=== PATIENT | male | born 1940 | race Caucasian/White ===

== ENCOUNTER → 2017-08-02 | Outpatient (CLI) | payer MEDICARE | END | disposition home or self-care (01) | LOC: RAH 16:36 | PROVIDERS: ATTEND Physical Medicine & Rehabilitation | DX: M19.012 Primary osteoarthritis, left shoulder (principal) | CPT/HCPCS: 73030 ==

== ENCOUNTER 2018-06-28 14:15 | Inpatient (IN) | payer MEDICARE ==
[~2018-06-28] VITALS: Ht 165.1 cm; Wt 77.7 kg
[2018-06-28 16:11] VITALS: BP 135/69
[2018-06-28 16:12] LABS: APPEARANCE,URINE Clear (CLEAR); BILIRUBIN,URINE Negative (NEGATIVE); COLOR,URINE Yellow (YELLOW); GLUCOSE, URINE (UA) Negative (NEGATIVE); KETONES,URINE Negative (NEGATIVE); LEUKOCYTE ESTERASE ,URINE Negative (NEGATIVE); NITRATE,URINE Negative (NEGATIVE); OCCULT BLOOD,URINE Negative (NEGATIVE); PROTEIN,URINE Negative (NEGATIVE)
[2018-06-28 16:12] LABS: BASOPHILS % (AUTO) 0.4 % (0.0-5.0); EOSINOPHILS % (AUTO) 1.8 % (0.0-8.0); HEMATOCRIT 34.9 % (42-54); LYMPHOCYTES % (AUTO) 51.3 % (21.0-51.0); MEAN CORPUSCULAR HEMOGLOBIN 31.5 pg (27.0-33.0); MEAN CORPUSCULAR HGB CONC 34.7 g/dL (32.0-36.0); MEAN CORPUSCULAR VOLUME 90.7 fL (79-99); MONOCYTES % (AUTO) 16.3 % (3.0-13.0); NEUTROPHILS % (AUTO) 30.2 % (40.0-77.0); NUCLEATED RED BLOOD CELLS 0.1 % (0.0-0.19); PLATELET COUNT (AUTO) 217 K/uL (130-400); RED BLOOD CELL COUNT(AUTO) 3.85 MIL/uL (4.50-6.20); WHITE BLOOD COUNT (AUTO) 4.9 K/uL (4.8-10.8)
[2018-06-28] MEDS ORDERED: ATOR80TA PO (16:29)
[2018-06-28] MEDS ORDERED: MATURE MVI PO (16:42)
[2018-06-28] MEDS ORDERED: FOLIC ACID PO (16:42)
[2018-06-28] MEDS ORDERED: PYRI100T2 PO (16:42)
[2018-06-28] MEDS ORDERED: ASPI-555 PO (16:42)
[2018-06-28] MEDS ORDERED: CYAN50008 PO (16:42)
[2018-06-28] MEDS ORDERED: CALC-866 PO (16:42)
[2018-06-28] MEDS ORDERED: OMEG-148 PO (16:42)
[2018-06-28] MEDS ORDERED: UBID100C10 PO (16:42)
[2018-06-28] MEDS ORDERED: SAW PALMETTO PO (16:42)
[2018-06-28 17:11] LABS: BAND NEUTROPHILS % (MANUAL) 2 % (0-2); LYMPHOCYTES % (MANUAL) 48 % (22-44); MAN.DIFF COMMENT-IMPRESSION MANUAL DIFFERENTIAL; MONOCYTES % (MANUAL) 15 % (2-9); REACTIVE LYMPHOCYTES 1 % (0-0); SEGMENTED NEUTROPHILS % 34 % (40-70)
[2018-06-29] VITALS (26 sets, daily range): BP systolic 113–151; BP diastolic 59–89
[2018-06-29] MEDS: CEFAZOLIN SODIUM 1 GM VIAL IVP SCH ×3 (06:00→18:07)
[2018-06-29] MEDS ORDERED: LIDOCAINE PF 2% 5ML ABBOJECT ONE ×2 (06:57→09:53)
[2018-06-29] MEDS ORDERED: ROCURONIUM 10MG/1ML SYR 10 MG/ML ML ONE (06:57)
[2018-06-29] MEDS ORDERED: TRANEXAMIC ACID 1000MG/10ML IV ONE ×2 (08:15→12:52)
[2018-06-29] MEDS ORDERED: CEFAZOLIN SODIUM 1 GM VIAL ONE (08:15)
[2018-06-29] MEDS ORDERED: LACTATED RINGERS 1000ML 1,000 ML IV ONE (08:59)
[2018-06-29] MEDS ORDERED: OXYCODONE HCL 10 MG TAB.SR.12H PO ONE (09:00)
[2018-06-29] MEDS ORDERED: KETOROLAC TROMETHAMINE 15MG/ML ONE (09:01)
[2018-06-29] MEDS ORDERED: ACETAMINOPHEN EXTRA STRENGTH 500 MG TABLET ONE (09:01)
--- NOTE | 2018-06-29 09:52 | NUR ---
SKIN PREP pt clipped surgical site and Orlin wipe left lower extremity Addendum: 06/29/18 at 0955 by ROWENA ALBARADO RN RN Amended: Links added.
[2018-06-29] MEDS ORDERED: DEXAMETHASONE SOD PHOSPHATE 10MG/ML 1ML VIAL ONE (09:53)
[2018-06-29] MEDS ORDERED: ONDANSETRON HCL 4 MG/2 ML VIAL ONE (09:53)
[2018-06-29] MEDS ORDERED: FENTANYL CITRATE PF 50 MCG/1 ML 2ML VIAL ONE (09:54)
[2018-06-29] MEDS ORDERED: PROPOFOL 10 MG/ML 20ML VIAL IV ONE (09:54)
[2018-06-29] MEDS ORDERED: MIDAZOLAM HCL 1 MG/ML 2ML VIAL ONE (09:54)
[2018-06-29] MEDS ORDERED: ROPIVACAINE 0.5% 5MG/ML 30ML IJ ONE (10:02)
[2018-06-29] MEDS ORDERED: EPHEDRINE SULFATE 50 MG/ML AMPULE ONE (10:17)
[2018-06-29] MEDS ORDERED: CEFAZOLIN SODIUM 1 GM VIAL IRRIG ONE (10:54)
[2018-06-29] MEDS ORDERED: POTASSIUM CHLORIDE 20MEQ/100ML 100 ML IV PRN (12:15)
[2018-06-29] MEDS ORDERED: OXYCODONE HCL 5 MG TAB PO PRN (12:15)
[2018-06-29] MEDS ORDERED: POTASSIUM CHLORIDE 10% ELIXIR 20 MEQ/15 ML UDCUP PO PRN (12:15)
[2018-06-29] MEDS ORDERED: DiphenhydrAMINE HCL 50 MG/ML VIAL IVP PRN (12:15)
[2018-06-29] MEDS ORDERED: POTASSIUM CHLORIDE 20 MEQ ERTAB PO PRN (12:15)
[2018-06-29] MEDS ORDERED: TEMAZEPAM 15 MG CAPSULE PO PRN (12:15)
[2018-06-29] MEDS: ACETAMINOPHEN EXTRA STRENGTH 500 MG TABLET PO SCH ×2 (12:15→20:08)
[2018-06-29] MEDS ORDERED: FERROUS FUMARATE 324 MG TABLET PO PRN (12:15)
[2018-06-29] MEDS ORDERED: TRAMADOL HCL 50 MG TABLET PO PRN (12:15)
[2018-06-29] MEDS ORDERED: LIDOCAINE HCL-MPF 1% 2ML VIAL IVP PRN (12:15)
[2018-06-29] MEDS ORDERED: ONDANSETRON HCL 4 MG/2 ML VIAL IVP PRN (12:15)
[2018-06-29] MEDS ORDERED: GLYCOPYRROLATE 1 MG/5 ML SYRINGE ONE (12:22)
[2018-06-29] MEDS ORDERED: NEOSTIGMINE 5MG/5ML SYR IV ONE (12:22)
[2018-06-29] MEDS ORDERED: MEPERIDINE-PF 25 MG/ML SYG ONE (13:17)
[2018-06-29] MEDS: SODIUM CHLORIDE 0.9% 1000ML 1,000 ML IV SCH ×3 (13:55→23:30)
[2018-06-29] MEDS: KETOROLAC TROMETHAMINE 15MG/ML IV PRN (14:11)
[2018-06-29] MEDS: OXYCODONE HCL 5 MG TAB PO PRN (15:46)
[2018-06-29] MEDS: PREGABALIN 25 MG CAP PO SCH (20:07)
[2018-06-29] MEDS: ASPIRIN 325 MG TABLET PO SCH (20:07)
[2018-06-29] MEDS: ATORVASTATIN CALCIUM 40 MG TABLET PO SCH (20:07)
[2018-06-29] MEDS: FAMOTIDINE 20MG TAB 20 MG TAB PO SCH (20:07)
[2018-06-30] MEDS: CEFAZOLIN SODIUM 1 GM VIAL IVP SCH (01:07)
[2018-06-30 04:00] VITALS: BP 111/69
[2018-06-30] MEDS: ACETAMINOPHEN EXTRA STRENGTH 500 MG TABLET PO SCH ×3 (04:15→20:36)
[2018-06-30 05:21] LABS: CREATININE 0.8 mg/dL (0.5-1.5); POTASSIUM 4.4 mmol/L (3.5-5.1)
[2018-06-30 05:36] LABS: HEMATOCRIT 30.3 % (42-54); MEAN CORPUSCULAR HEMOGLOBIN 32.3 pg (27.0-33.0); MEAN CORPUSCULAR HGB CONC 34.9 g/dL (32.0-36.0); MEAN CORPUSCULAR VOLUME 92.6 fL (79-99); PLATELET COUNT (AUTO) 159 K/uL (130-400); RED BLOOD CELL COUNT(AUTO) 3.27 MIL/uL (4.50-6.20); RED CELL DISTRIBUTION WIDTH 15.2 % (11.0-15.5); WHITE BLOOD COUNT (AUTO) 7.9 K/uL (4.8-10.8)
[2018-06-30 08:45] VITALS: BP 107/67
[2018-06-30] MEDS: KETOROLAC TROMETHAMINE 15MG/ML IV PRN (09:06)
[2018-06-30] MEDS: PREGABALIN 25 MG CAP PO SCH ×2 (09:07→20:37)
[2018-06-30] MEDS: ASPIRIN 325 MG TABLET PO SCH ×2 (09:07→20:37)
[2018-06-30] MEDS: POLYETHYLENE GLYCOL 3350 17 GM POWD.PACK PO SCH (09:07)
[2018-06-30] MEDS: FAMOTIDINE 20MG TAB 20 MG TAB PO SCH ×2 (09:08→20:37)
[2018-06-30] MEDS: TAMSULOSIN HCL 0.4 MG CAP.ER.24H PO SCH (09:08)
--- NOTE | 2018-06-30 09:40 | NUR ---
DCP CM met with pt discussed dc plans. Pt is independent prior to admission, lives at home with spouse. Has a bedside commode, sit in the shower. Denies any other equipments/services. Pt feels safe to go back home, spouse able to assist with transportation and needs, agreeable to home w/HH and standard walker no wheels, declined 3 in 1 chair at this time already have a bedside commode. [facility]KTOR signed for [facility] and [facility]. [facility]. DC plan to home w/HH and DME. CM to cont to follow up. Addendum: 06/30/18 at 1619 by GRISELDA PITTS LVN CM Amended: Links added.
[2018-06-30 11:53] VITALS: BP 114/63
[2018-06-30] MEDS: CALCIUM CARBONATE 500 MG TABLET PO PRN (14:46)
[2018-06-30] MEDS: OXYCODONE HCL 5 MG TAB PO PRN (14:57)
[2018-06-30 16:14] VITALS: BP 103/52
--- NOTE | 2018-06-30 16:26 | NUR ---
CM Note: [facility] approved standard walker no wheels delivered in pt's room. Spoke to Sherley marquez/[facility] pt standard walker no wheels approved and delivered in pt's room. Primary nurse aware. CM to cont to follow up.
--- NOTE | 2018-06-30 16:26 | NUR ---
CM Note: [facility] approval and acceptance Spoke to Doreen /[facility], pt has approval and acceptance. Aware Adolfo Hidalgo to do PT as per pt request. Pt safe to dc via private car once MD clears. CM to cont to follow up.
[2018-06-30 19:40] VITALS: BP 121/66
[2018-06-30] MEDS: ATORVASTATIN CALCIUM 40 MG TABLET PO SCH (20:37)
[2018-06-30 23:18] VITALS: BP 129/69
[2018-07-01] MEDS: ACETAMINOPHEN EXTRA STRENGTH 500 MG TABLET PO SCH ×2 (03:37→12:58)
[2018-07-01 03:45] VITALS: BP 143/70
[2018-07-01 07:30] VITALS: BP 143/80
[2018-07-01] MEDS: TAMSULOSIN HCL 0.4 MG CAP.ER.24H PO SCH (08:48)
[2018-07-01] MEDS: FAMOTIDINE 20MG TAB 20 MG TAB PO SCH (08:55)
[2018-07-01] MEDS: PREGABALIN 25 MG CAP PO SCH (08:55)
[2018-07-01] MEDS: POLYETHYLENE GLYCOL 3350 17 GM POWD.PACK PO SCH (08:55)
[2018-07-01] MEDS: ASPIRIN 325 MG TABLET PO SCH (08:55)
[2018-07-01] MEDS: OXYCODONE HCL 5 MG TAB PO PRN (08:56)
[2018-07-01] MEDS: CALCIUM CARBONATE 500 MG TABLET PO PRN (09:05)
[2018-07-01 11:00] VITALS: BP 144/77
[2018-07-01 16:00] VITALS: BP 145/77
[2018-07-01] MEDS ORDERED: HYDR-4457 PO (17:20)
[2018-07-01] MEDS ORDERED: ASPI-1012 PO (17:20)
--- NOTE | 2018-07-01 19:50 | NUR ---
Discharge teaching provided in the room with pt and family at side. Emphasis on dx, s/s to monitor for, and when to seek emergency care vs dial 911. Also, emphasis on Dr. Reina' orders for physical therapy and incision care. Pt has follow up appt with Dr. Reina in 07/22 @ 1:15 pm. RX for ASA and norco given to pt. Discussed route, purpose, frequency, and duration of treatment, as well as side effect and adverse effects. PIV removed, tip intact, dressed with sterile 2x2 and bandaid after hemostasis. Pt is to keep incision clean, dry, and intact, daily dressing changes with betadine, 4x4's and gauze to be done by nurse. Dressing changed prior to discharge, per MD orders; incision intact, skin edges well approximated. No active drainage noted. Pt wheeled to [facility] for transport home via private car; pt in stable condition at time of discharge. [facility] Bryan Moore RN.
[2018-07-02] MEDS ORDERED: BISACODYL 10 MG SUPP.RECT RC PRN (12:15)
== END 2018-07-01 19:54 | disposition home health service (06) | DRG 470 ==
LOC: DAHIP 06-29 07:33 → 4AH 06-29 12:48
PROVIDERS: ADMIT Orthopaedic Surgery; ATTEND Orthopaedic Surgery
PROC: 0SRD0J9 Replacement of Left Knee Joint with Synthetic Substitute, Cemented, Open Approach (ICD-10-PCS; principal; 2018-06-29 09:52)
DX: M17.12 Unilateral primary osteoarthritis, left knee (principal); E78.5 Hyperlipidemia, unspecified; I10 Essential (primary) hypertension; I25.10 Atherosclerotic heart disease of native coronary artery without angina pectoris; Z82.49 Family history of ischemic heart disease and other diseases of the circulatory system; G89.29 Other chronic pain; Z80.9 Family history of malignant neoplasm, unspecified
CPT/HCPCS: 36415; 80048; 81003; 85025; 85027; 88304; 88311; 96374; 96375; A4218; G0378; J0690; J1100; J1885; J2001; J2175; J2250; J2405; J2704; J2710; J2795; J3010; J3490; J7120

== ENCOUNTER → 2022-07-16 | Outpatient (CLI) | payer MEDICARE ==
[~2022-07-16] MED LIST: ASPI-1012 PO; ATOR80TA PO; CALC-866 PO; CYAN50009 PO; FOLIC ACID PO; HYDR-4457 PO; MATURE MVI PO; OMEG-148 PO; PYRI100T10 PO; SAW PALMETTO PO; UBID100C10 PO
[2022-07-16 16:37] LABS: CHOLESTEROL 146 mg/dL (<200); HDL CHOLESTEROL 50 mg/dL (29-71); LDL DIRECT 79 mg/dL (0-99); TRIGLYCERIDES 110 mg/dL (30-200)
== END | disposition home or self-care (01) ==
LOC: LAB 11:55
PROVIDERS: ATTEND Internal Medicine Cardiovascular Disease
DX: E78.5 Hyperlipidemia, unspecified (principal)
CPT/HCPCS: 36415; 80061